=== PATIENT | female | born 1940 | race Caucasian/White ===

== ENCOUNTER 2021-12-03 06:03 | Observation (INO) ==
--- NOTE | 2021-11-12 13:55 | PAT Medication Instructions ---
Medication Instructions Date of Service November 12, 2021 Home Medications Medication Instructions Recorded sodium bicarbonate 650 mg tablet 1,300 mg PO BID #360 tabs 11/15/20 aspirin 81 mg tablet,delayed release 81 mg PO QPM mecobalamin (vitamin B12) 1,000 mcg chewable tablet 1,000 mcg PO QAM citalopram 20 mg tablet 20 mg PO QAM sodium bicarbonate 650 mg tablet 1,300 mg PO BID cholecalciferol (vitamin D3) 25 mcg (1,000 unit) tablet (Vitamin D3) 25 mcg PO QAM multivitamin 1 tab PO QAM omega-3 fatty acids 1,000 mg PO QAM vitamin E 400 unit tablet 400 unit PO QAM STOP taking 2 weeks before surgery omega-3 fatty acids 1,000 mg PO QAM vitamin E 400 unit tablet 400 unit PO QAM DO NOT take the morning of surgery mecobalamin (vitamin B12) 1,000 mcg chewable tablet 1,000 mcg PO QAM sodium bicarbonate 650 mg tablet 1,300 mg PO BID cholecalciferol (vitamin D3) 25 mcg (1,000 unit) tablet (Vitamin D3) 25 mcg PO QAM multivitamin 1 tab PO QAM Take morning of surgery With a small sip of water, OTHERWISE NOTHING TO EAT OR DRINK AFTER MIDNIGHT: citalopram 20 mg tablet 20 mg PO QAM Take evening before surgery aspirin 81 mg tablet,delayed release 81 mg PO QPM (unless directed otherwise by surgeon) sodium bicarbonate 650 mg tablet 1,300 mg PO BID Other Notes If you have any questions please call us at [phone] or [phone] or [phone] or [phone]
--- NOTE | 2021-11-21 10:25 | Anesthesiology Consultation ---
Date of Service November 21, 2021 Assessment & Plan (1) Encounter for pre-operative examination: Outpatient joint assessment: Patient is currently scheduled for inpatient pathway. If re-evaluated pending system levels during current pandemic/surgeon requests outpatient pathway, patient is not recommended candidate for outpatient joint program from anesthesia standpoint. Chart Review Chart Review: Acceptable Risk for Surgery and Patient seen in Pre Admission Testing Teaching & Discussion Pre-Anesthesia Teaching/Discussion Notes: Instructed NPO after midnight before surgery, except medications with 15 cc of water. Medication instructions provided according to the PAT guidelines. History Surgery Operation Date: 12/03/21 10:40 Proposed Procedures p Left Total Hip Arthroplasty - Van Bueno MD Height/Weight Height: 5 ft 5 in Weight: 69.5 kg Allergies Allergy/AdvReac Type Severity Reaction Status Date / Time No Known Drug Allergies Allergy Unknown Verified 11/12/21 10:52 Medications Home Medications Medication Instructions Recorded Confirmed Last Taken aspirin 81 mg tablet,delayed 81 mg PO QPM 07/28/19 11/12/21 06/04/20 release mecobalamin (vitamin B12) 1,000 1,000 mcg PO QAM 05/11/20 11/12/21 06/10/20 17:00 mcg chewable tablet citalopram 20 mg tablet 20 mg PO QAM 05/29/20 11/12/21 Unknown sodium bicarbonate 650 mg tablet 1,300 mg PO BID #360 tabs 11/15/20 11/12/21 Unknown cholecalciferol (vitamin D3) 25 25 mcg PO QAM 11/12/21 11/12/21 Unknown mcg (1,000 unit) tablet (Vitamin D3) multivitamin 1 tab PO QAM 11/12/21 11/12/21 Unknown omega-3 fatty acids 1,000 mg PO QAM 11/12/21 11/12/21 Unknown vitamin E 400 unit tablet 400 unit PO QAM 11/12/21 11/12/21 Unknown Past Medical History Medical History (Updated 11/21/21 @ 10:51 by Carmelita Hung PA-C) Anxiety and depression CVA (cerebral vascular accident) Prior cerebellar stroke noted on imaging, age indeterminate. To continue ASA 81mg daily Kidney stones Memory changes Neuro eval ([facility]) 05/15 -- sx "concerning for early dementia but cannot r/o component due to depression, B12 deficiency, poor sleep and hearing loss affecting her ability to have conversations." Rheumatoid arthritis Patient unsure if she has this diagnosis...no medications for it. Sensorineural hearing loss (SNHL) [place] UTI (urinary tract infection) Recently treated with Cipro. Patient denies h/o seizures, heart attack, heart failure, DM, HTN, blood clots or blood transfusions. Exercise / Class Metabolic Activity III < 4 Walking/Shop/Light housework (denies CP or SOB with usual activities) Past Family History Family History Sister Stroke Mother Cancer Breast cancer Other Family history non-contributory Heart disease Hypertension No family history of adverse response to anesthesia No family history of bleeding disorder Past Surgical History Surgical History History of bladder surgery BLADDER TACK History of cataract surgery RT/LEFT History of colonoscopy History of cystoscopy multiple--last 06/11/20 @ [facility] cystoscopy, right ureteroscopy, laser litho, stent: 08/16/18: LMA#4 at [facility] History of renal stent History of right hip replacement History of tooth extraction Hx of total hysterectomy Past Anesthesia History No Hx of Anesthesia Complications and No Family Hx of Anesthesia Complications History of PONV No Hx of PONV and No Hx of Motion Sickness Social History Smoking Status: Never smoker Do You Dip or Chew Tobacco: No Hx Alcohol Use: No Hx Substance Use: No substance use type: does not use Review of Systems Snoring, denies witnessed apneas. Patient denies chest pain, shortness of breath, dyspnea on exertion, reflux, fever, chills, cough, wheezing, or palpitations. Physical Exam Vital Signs Vitals BP 136/82 P 60 TEMP 97.8 SP02 98% on RA RESP 17 Physical Full cervical extension range of motion without pain TMD 3.5 finger breadths Mallampati Score 2 Dentition: full upper dentures; denies chipped or loose teeth, caps, crowns, implants or bridges Lungs: normal respiratory effort. Clear throughout to auscultation, no adventitious breath sounds Cardiac: regular rate and rhythm, no murmurs noted Carotid arteries: negative bruit bilat Lab Results Anesthesia Preop Results Results Anesthesia Widget: WBC 9.49 K/ul (4.8-10.8) 11/21/21 Hgb 14.9 g/dl (12.0-16.0) 11/21/21 Hct 46.5 % (34.1-44.9) H 11/21/21 Plt 220 K/uL (130-400) 11/21/21 Na 141 mmol/L (136-145) 11/21/21 K 5.0 mmol/L (3.5-5.1) 11/21/21 Cl 105 mmol/L (98-107) 11/21/21 CO2 32 mmol/L (21-32) 11/21/21 BUN 26 mg/dl (6-23) H 11/21/21 Creat 0.70 mg/dl (0.6-1.2) 11/21/21 Glucose Level 90 mg/dl (70-99(Fasting)) 11/21/21 PT 10.2 Seconds (9.0-12.0) 11/21/21 PTT 25.6 Seconds (21.0-31.0) 11/21/21 INR 1.0 (0.9-1.1) 11/21/21 Blood Type A Positive 11/21/21 Antibody Screen NEGATIVE 11/21/21 Testing Electrocardiogram Date: 11/21/21 Sinus bradycardia, rate 57 bpm Chest X-Ray Date: 11/21/21 No active disease in the chest COVID-19 Risk Screen Screening Information COVID-19 Screen Date: 11/21/21 Exposure 21 Days Family/Household +COVID Last 21 Days: No Exposure 10 Days Any COVID Exposure Last 10 Days: No Symptoms Last 10 Days Experienced COVID Sx Last 10 Days: No + COVID 0-90 Days COVID + in Last 0-90 Days: No
[~2021-12-03 06:03] MED LIST: ACETAMINOPHEN 500 MG TAB PO SCH; CeleBREX 200 MG CAP PO SCH; FAMOTIDINE 20 MG TAB PO SCH; LR 500ML BOLUS, THEN 15ML/HR IV SCH; LR 60ML/HR IV SCH; METOCLOPRAMIDE HCL 10 MG TABLET PO SCH; TRANEXAMIC ACID 1,000 MG **IV Pre-op IV SCH; ceFAZolin 2000MG 2,000 MG/15 ML SYR IV SCH
[2021-12-03] MEDS ORDERED: BUPIVACAINE 0.5 % 5 MG/1 ML PF 10ML VIAL ONE (06:29)
--- NOTE | 2021-12-03 06:54 | History & Physical Bridge Note ---
Date of Service December 03, 2021 History & Physical Bridge Note I have examined the patient, reviewed the History & Physical and in the interval since the performance of the History & Physical I have noted the following changes of clinical significance: no changes noted
[2021-12-03] MEDS ORDERED: MIDAZOLAM HCL 1 MG/ML 2ML VIAL ONE (07:16)
[2021-12-03] MEDS ORDERED: PROPOFOL IV EMULSION 10 MG/ML 20 ML VIAL IV ONE ×2 (07:21→09:03)
[2021-12-03] MEDS ORDERED: ATROPINE SULFATE 0.1 MG/ML 10ML SYR IV PRN (07:40)
[2021-12-03] MEDS ORDERED: fentaNYL citrate 100 MCG/2 ML VIAL IV PRN (07:40)
[2021-12-03] MEDS ORDERED: ePHEDrine sulfate 50 MG/ML AMP IV PRN (07:40)
[2021-12-03] MEDS ORDERED: PROMETHAZINE HCL 6.25 MG in SODIUM CHLORIDE 0.9% 50 ML IV PRN (07:40)
[2021-12-03] MEDS ORDERED: ONDANSETRON INJ 2 MG/ML 2 ML VIAL IV PRN ×2 (07:40→12:19)
[2021-12-03] MEDS ORDERED: EPINEPHrine INJ 1 MG/ML AMP ONE (08:38)
[2021-12-03] MEDS ORDERED: BUPIVACAINE 0.5 % 5 MG/1 ML MPF 30ML VIAL ONE (08:38)
[2021-12-03] MEDS ORDERED: ePHEDrine sulfate 50 MG/ML AMP ONE (09:56)
--- NOTE | 2021-12-03 10:43 | Operative Report ---
PG Post Operative Report Pre & Post Diagnosis Operation Date: 12/03/21 08:50 Pre-Op Diagnosis: Advanced left hip arthritis Post-Op Diagnosis: Advanced left hip arthritis I identified the patient and participated in the time-out.: Yes Procedure Operation Date: 12/03/21 08:50 Actual Procedures p Left Total Hip Arthroplasty(Left) - Van Bueno MD Surgeon Van Bueno MD Ccie Charly Mejia PA-C Estimated Blood Loss 200 Findings Consistent with Post-Op Diagnosis Operative findings were advanced left hip DJD. She had extensive grade 4 [id number] disease of the femoral head and acetabulum. She had pretty significant osteophytes around the femoral head as well as the acetabulum. Bone density was good. Cancellous bone envelope was quite sturdy. Fluids 1000 cc Specimens Left femoral head sent for pathology Drains None Anesthesia Type Spinal MAC Complications none Indications Patient is an 81-year-old fairly active female who has had a several year history of increasing left hip pain discomfort. She has been through extensive conservative treatment which would become less successful over time patient become more debilitated by her hip pain. She is try to maintain a fairly independent lifestyle and having difficulty doing this. She did have right hip replaced 9 years ago and is done well from this. X-rays show advanced left hip DJD. She elected proceed with surgical treatment. Description of Procedure Operative implants consist of: 1. Biomet G7 size 56 mm acetabular shell. 2. 6.5 cancellous acetabular screws 1 of 35 mm length and 120 mm length. 3. [place] hole market garden worker. 4. 56 mm x 40 mm highly cross-linked polyethylene liner. 5. DePuy [place] size 125 degree angle short neck femoral stem. 6. +5/40 mm ceramic articular ball. The patient was taken the operating, identified, placed on the operating table supine position protectors were properly padded. IV antibiotics arrived by anesthesia team a spinal anesthetic and been implemented holding area. Beyer catheter was placed in sterile fashion. The patient was then placed in the right lateral decubitus position. Axillary roll was placed. A Stulberg hip positioner was used for positioning. The left hip and leg were then prepped and draped in usual sterile fashion. A posterolateral approach to the left hip was then performed through a curvilinear incision centered over the greater trochanter. Sharp dissection Through subcutaneous tissue down the IT band gluteal fascia. The IT band gluteal fascia was lysed longitudinally in line with skin incision. The underlying greater trochanter bursa was excised. The piriformis and external rotators along with the posterior hip joint capsule released from the posterior aspect of hip joint as a single layer. Great care was taken throughout the procedure protect the sciatic nerve. A posterior capsulotomy was performed. The hip was internally rotated and dislocated. Femoral neck osteotomy cut was made with a Final Cut about 5 mm above the lesser trochanter. Femoral head was removed and sent for pathology. The femur retracted anteriorly. Attention drawn the acetabulum. The medial osteophyte was removed with use of an osteotome and a rongeur. I then reamed beginning with a size 43 and progressing up to 55. I reamed a little bit with a 56 reamer and then placed a 56 mm Biomet G7 acetabular shell in about 40 degrees lateral opening and 20 degrees of anteversion. We anteverted this a little additionally in order to maximize her stability with her mild dementia. This was then fixed with two 6.5 cancellous acetabular screws. Several anterior acetabular osteophytes were removed. Trial liner was placed. Attention drawn the femur. The proximal femur was entered with a InstaGIS cutter followed by canal finder. I then broached begin the size 8 and progressed up to a 11. Got excellent fit at 11. Her cancellous bone envelope was quite good and we elected to use an uncemented implant as a result. We then trialed the hip and the +5 articular ball with a standard neck was just too tight. With a short neck her hip was fully stable, soft tissue tension seemed appropriate and leg length seemed equal. I elected to place these implants. All trial implants were removed. An apex hole market garden worker was placed. Highly cross-linked polyethylene liner was placed. A DePuy size 11 short neck 125 degree angle KLA femoral stem was impacted in position. A +5/40 mm ceramic articular ball was placed. Hip was located once again found to be stable. Attention drawn toward closing. Wound was irrigated scope soft pulsatile lavage solution. I did inject locally with 60 cc of absent Marcaine with epinephrine. The posterior capsule and exter nal rotators were repaired through drill holes in the posterior trochanter as a single layer with #2 Tycron suture. The IT band and gluteal fascia then closed in 1 PDS suture running fashion for the subcutaneous tissue was closed with 2 layers the deep layer #2 Vicryl suture and subcutaneous tissues with 2-0 Dexon suture in a buried interrupted fashion the skin was closed skin carina. Leg was then cleaned and dried a Prevena VAC wound VAC VAC was applied due to the fairly thick soft tissue envelope. The patient then transferred to the recovery room in stable condition. Patient tolerated procedure well and there were no complications. Charly Mejia, my physician payroll administrative assistant, was present for the entire procedure. His assistance was essential and required for appropriate patient positioning, prepping and draping, surgical exposure, performing the technical details of the operation, placement the implants, closure of the wound, and placement of the sterile bandage. I attest to the content of the Intraoperative Record and any orders documented therein. Any exceptions are noted below.
--- NOTE | 2021-12-03 11:11 | XRay Report ---
SINGLE VIEW PELVIS; SINGLE VIEW LEFT HIP CLINICAL HISTORY: Postoperative examination. FINDINGS: An AP portable view of the hips and pelvis with a crosstable lateral portable view of the l eft hip are obtained. A bipolar left hip arthroplasty is in near-anatomic alignment. At least 2 larissa ical lag screws transfix the acetabular cup. No acute fracture is identified. There are expected post operative changes overlying the left hip including skin clips, subcutaneous gas, a surgical drain, an d soft tissue swelling. A right hip arthroplasty is also in place. A Beyer catheter is noted. Phlebol iths are seen in the pelvis. IMPRESSION: Expected postoperative findings status post left hip arthroplasty. No acute fracture is s een. ACT 112: Negative or not required by law. Electronically signed by: Curtis Lanza M.D. 12/03/2021 11:10 AM
--- NOTE | 2021-12-03 11:47 | Anesthesiology Progress Note ---
Date of Service December 03, 2021 Anesthesia Post Procedure Vital Signs Vital Signs: Temp Pulse Pulse Resp BP BP Pulse Ox 12/03/21 11:40 71 20 107/67 94 12/03/21 11:10 36.2 C L 70 19 116/73 94 12/03/21 11:00 62 20 116/76 98 12/03/21 10:50 58 L 19 118/70 99 12/03/21 10:40 57 L 20 118/64 98 12/03/21 10:33 36.2 C L 57 L 14 121/69 96 12/03/21 06:49 36.9 C 61 20 144/87 H 96 O2 Del Method O2 Flow Rate 12/03/21 11:40 Room Air 12/03/21 11:10 Room Air 12/03/21 11:00 Room Air 12/03/21 10:50 Oxymask 9 12/03/21 10:40 Oxymask 9 12/03/21 10:33 Oxymask 9 12/03/21 06:49 Room Air Pain Intensity Left Hip: Pain Intensity: 2 Transfer of Care Handoff Completed per policy Notes Mental Status: alert / awake / arousable Patient Amnestic to Procedure: Yes Nausea / Vomiting: adequately controlled Pain: adequately controlled Airway Patency, RR, SpO2: stable & adequate BP & HR: stable & adequate Hydration State: stable & adequate Neuraxial Anesthesia: was administered and sensory block is resolving Anesthetic Complications: no major complications apparent and Pt Satisfied with anesthetic care
[2021-12-03] MEDS ORDERED: bisacodyL 10 MG SUPP PR PRN (12:19)
[2021-12-03] MEDS ORDERED: METOCLOPRAMIDE HCL INJ 5 MG/ML 2 ML VIAL IV PRN (12:19)
[2021-12-03] MEDS ORDERED: ALUMINUM/MAGNESIUM SUSP 30 ML UDC PO PRN (12:19)
[2021-12-03] MEDS ORDERED: MAGNESIUM HYDROXIDE SUSP 30 ML UDC PO PRN (12:19)
[2021-12-03] MEDS ORDERED: traMADol HCL 50 MG TABLET PO PRN (12:19)
[2021-12-03] MEDS ORDERED: NALOXONE HCL 0.4 MG/1 ML VIAL/CARP IV PRN (12:19)
[2021-12-03] MEDS ORDERED: HYDROmorphone INJ 0.5 MG/0.5 ML SYR IV PRN (12:19)
[2021-12-03] MEDS: SODIUM CHLORIDE 0.9% 1000ML 1,000 ML IV SCH ×2 (13:33→22:04)
[2021-12-03] MEDS: ACETAMINOPHEN 500 MG TAB PO SCH ×2 (13:36→22:04)
[2021-12-03] MEDS: KETOROLAC TROMETHAMINE 15 MG/ML VIAL IV SCH ×2 (14:31→18:19)
[2021-12-03] MEDS ORDERED: TRANEXAMIC ACID / 0.7% NACL 1,000 MG/100 ML BAG IV SCH (16:45)
[2021-12-03] MEDS: ASCORBIC ACID 500 MG TAB PO SCH (17:44)
[2021-12-03] MEDS: ceFAZolin 1000MG 1,000 MG/7.5 ML SYR IV SCH (18:30)
[2021-12-03] MEDS: ASPIRIN 81 MG ECTAB PO SCH (20:09)
[2021-12-03] MEDS: SODIUM BICARBONATE 650 MG TAB PO SCH (20:10)
[2021-12-03] MEDS: DOCUSATE SODIUM 100 MG CAP PO SCH (20:13)
[2021-12-03] MEDS ORDERED: SENNA 8.6 MG TAB PO SCH (21:00)
[2021-12-04] MEDS: ceFAZolin 1000MG 1,000 MG/7.5 ML SYR IV SCH (00:41)
[2021-12-04] MEDS: KETOROLAC TROMETHAMINE 15 MG/ML VIAL IV SCH ×4 (00:41→17:37)
[2021-12-04] MEDS: ACETAMINOPHEN 500 MG TAB PO SCH ×2 (05:23→13:24)
[2021-12-04 06:35] LABS: Hematocrit (blood only) 35.8 % (34.1-44.9); Hemoglobin 11.5 g/dl (12.0-16.0); Mean Corpuscular Hemoglobin 31.6 pg (25.0-34.0); Mean Corpuscular Hgb Conc 32.1 g/dL (32.0-36.0); Mean Corpuscular Volume 98.4 fL (80.0-100.0); Mean Platelet Volume 9.9 fL (9.4-12.3); Platelet Count 158 K/uL (130-400); RDW Coefficient of Variation 14.1 % (11.5-14.5); RDW Standard Deviation 51.7 fL (36.4-46.3); Red Blood Count 3.64 M/uL (3.93-5.22); White Blood Count 8.39 K/ul (4.8-10.8)
[2021-12-04 06:58] LABS: BUN Creatinine Ratio 22.6 (10-20); Creatinine Clr Calc Pharmacy 68.5 ml/min; Est GFR (African American) 97.3 ml/min
[2021-12-04] MEDS: ASCORBIC ACID 500 MG TAB PO SCH ×2 (07:48→17:37)
[2021-12-04] MEDS: ASPIRIN 81 MG ECTAB PO SCH (07:48)
[2021-12-04] MEDS: SODIUM BICARBONATE 650 MG TAB PO SCH (07:48)
[2021-12-04] MEDS: DOCUSATE SODIUM 100 MG CAP PO SCH (07:49)
[2021-12-04 07:55] LABS: Basophils # (auto) 0.03 K/uL (0-0.2); Basophils % (auto) 0.4 %; Eosinophils # (auto) 0.01 K/uL (0-0.50); Eosinophils % (auto) 0.1 %; Immature Granulocytes # (auto) 0.02 K/uL (0.00-0.02); Immature Granulocytes % (auto) 0.2 %; Lymphocytes # (auto) 2.25 K/uL (1.2-3.4); Lymphocytes % (auto) 26.8 %; Monocytes # (auto) 0.62 K/uL (0.24-0.82); Monocytes % (auto) 7.4 %; Neutrophils # (auto) 5.46 K/uL (1.4-6.5); Neutrophils % (auto) 65.1 %
[2021-12-04] MEDS ORDERED: dexAMETHasone 10 MG in SYRINGE 0 ML IV SCH (08:00)
[2021-12-04] MEDS ORDERED: NON-FORMULARY MEDICATION (Multivitamin Tablet) PO SCH (09:00)
[2021-12-04] MEDS ORDERED: CHOLECALCIFEROL 1,000 UNITS 25 MCG TAB PO SCH (09:00)
[2021-12-04] MEDS ORDERED: CITALOPRAM 20 MG TAB PO SCH (09:00)
[2021-12-04] MEDS ORDERED: CYANOCOBALAMIN (B-12) 500 MCG TABLET PO SCH (09:00)
[2021-12-04] MEDS ORDERED: OMEGA-3 (PURIFIED FISH OIL) 1 GM CAP PO SCH (09:00)
[2021-12-04] MEDS ORDERED: TOCOPHERYL, DL-ALPHA 400 UNITS 180 MG CAP PO SCH (09:00)
[2021-12-04] MEDS ORDERED: MULTIVITAMIN TAB PO SCH (09:00)
--- NOTE | 2021-12-04 11:59 | Progress Notes ---
DATE OF SERVICE: 12/04/2021 SUBJECTIVE: An 81-year-old female postoperative day 1 from a left hip replacement. She is doing alxe te well. Denies much in the way of pain. Feels like she got around in therapy pretty well. No ches t pain or shortness of breath. Not feeling dizzy or lightheaded. OBJECTIVE: VITAL SIGNS: Temperature 36.5. Vital signs are stable. PHYSICAL EXAMINATION: GENERAL: Shows a pleasant, elderly female. She is sitting up in bed. She is awake, alert and orien sarah. Very mild dementia. She responds appropriately. LUNGS: Clear to auscultation. HEART: Regular rate and rhythm. ABDOMEN: Soft, nontender, nondistended. EXTREMITIES: Grossly neurovascularly intact except as follows: Examination of the left hip reveals the Prevena VAC dressing to be in place. Leg lengths were equal. No swelling. She can dorsiflex an d plantarflex her foot appropriately. LABORATORY DATA: Hemoglobin 11.5. Hematocrit is 35.8. Electrolytes are stable. ASSESSMENT: An 81-year-old female postoperative day 1 from a left hip replacement, doing quite well. Pain is controlled. She is neurologically intact. Hip is located. She does have some mild sena ia. PLAN: 1. DVT prophylaxis including thigh-high TEDs, SCDs, and aspirin twice a day. 2. PT/OT, weightbear as tolerated. Left total hip protocol. 3. Pain control, doing okay with current pain regimen. We will limit narcotics to avoid confusion, especially with her dementia. 4. Wound care. She has got a Prevena in place. We will instruct her on wound care. 5. Disposition: Plan to discharge her home with some home health likely later today if does okay in therapy. Job ID: [id number]
== END 2021-12-04 18:17 | disposition home health service (06) ==
LOC: ASU 06:03 → PACUINP 06:03 → 3E 13:26
DX: Z79.82 Long term (current) use of aspirin; M16.12 Unilateral primary osteoarthritis, left hip; Z79.899 Other long term (current) drug therapy